=== PATIENT | female | born 1990 | race Caucasian/White ===

== ENCOUNTER 2016-06-30 22:30 | Outpatient (CLI) | payer MEDICAID ==
[2016-06-30 23:34] LABS: APPEARANCE HAZY (CLEAR); BILIRUBIN NEGATIVE (NEGATIVE); COLOR YELLOW (YELLOW); GLUCOSE NEGATIVE (NEGATIVE); KETONE NEGATIVE (NEGATIVE); LEUKOCYTE ESTERASE NEGATIVE (NEGATIVE); NITRITE NEGATIVE (NEGATIVE); PH 5.5 (5.0-6.0); PROTEIN NEGATIVE (NEGATIVE); SPECIFIC GRAVITY 1.025 (1.005-1.020); UROBILINOGEN NORMAL (NORMAL)
== END 2016-07-01 00:26 | disposition home or self-care (01) ==
LOC: D.LDO 22:30 → D.LD 22:30 → D.LDO 07-01 00:26
PROVIDERS: Obstetrics & Gynecology
DX: O26.853 Spotting complicating pregnancy, third trimester (principal); Z3A.28 28 weeks gestation of pregnancy

== ENCOUNTER → 2016-07-09 18:15 | Outpatient (CLI) | payer MEDICAID | END | disposition home or self-care (01) | LOC: D.LDO 18:15 | DX: O36.8130 Decreased fetal movements, third trimester, not applicable or unspecified (principal); Z3A.29 29 weeks gestation of pregnancy ==

== ENCOUNTER → 2016-07-14 15:44 | Outpatient (CLI) | payer MEDICAID | END | disposition home or self-care (01) | LOC: D.LABREF 15:44 | PROVIDERS: Specialist | DX: O60.00 Preterm labor without delivery, unspecified trimester (principal) ==

== ENCOUNTER → 2016-07-26 22:59 | Outpatient (CLI) | payer MEDICAID ==
[2016-07-26 23:40] LABS: APPEARANCE CLOUDY (CLEAR); BILIRUBIN NEGATIVE (NEGATIVE); COLOR YELLOW (YELLOW); GLUCOSE NEGATIVE (NEGATIVE); KETONE NEGATIVE (NEGATIVE); LEUKOCYTE ESTERASE TRACE (NEGATIVE); NITRITE NEGATIVE (NEGATIVE); PROTEIN NEGATIVE (NEGATIVE); UROBILINOGEN NORMAL (NORMAL)
[2016-07-26 23:47] LABS: AMORPHOUS SEDIMENT <1+ /lpf (NONE SEEN); BACTERIA MANY /hpf (NONE SEEN); EPITHELIAL CELLS 0-5 /hpf (0-5); GRANULAR CAST 0-5 /lpf (NONE SEEN); HYALINE CAST OCC /lpf (NONE SEEN); MUCUS <1+ /lpf (NONE SEEN); RED CELLS - URINE 0-5 /hpf (0-5)
== END | disposition home or self-care (01) ==
LOC: D.LDO 22:59
PROVIDERS: Obstetrics & Gynecology
DX: Z34.83 Encounter for supervision of other normal pregnancy, third trimester (principal); Z3A.31 31 weeks gestation of pregnancy; M54.9 Dorsalgia, unspecified; R10.9 Unspecified abdominal pain

== ENCOUNTER 2016-09-16 05:00 | Inpatient (IN) | payer MEDICAID ==
[~2016-09-16] VITALS: Ht 152.4 cm; Wt 57.6 kg
[2016-09-16] VITALS (19 sets, daily range): BP systolic 109–141; BP diastolic 55–80; BMI 24.8
--- NOTE | ~2016-09-16 | OP ---
PATIENT NAME: DAX DELA CRUZ MEDICAL RECORD: [id number] :92 LOCATION:[id number] ADMISSION DATE:09/16/16 SURGEON: DECLAN ZHOU MD DATE OF OPERATION: 09/16/2016 PREOPERATIVE DIAGNOSIS: Suspected cephalopelvic disproportion. POSTOPERATIVE DIAGNOSIS: Suspected cephalopelvic disproportion. PROCEDURE: A primary low transverse section with midline vertical extension of the uterine incision. SURGEON: Declan Zhou. ESTIMATED BLOOD LOSS: 1000 cc. INTRAVENOUS FLUIDS: Per anesthesia record. FINDINGS: 1. Viable female infant, Apgars 9 at 1 and 9 at 5. 2. Placenta delivered manually intact, 3-vessel cord noted. 3. Grossly normal adnexa bilaterally. 4. Android pelvis. SPECIMENS: Placenta and cord for gases. COMPLICATIONS: None apparent. PROCEDURE IN DETAIL: The patient was taken to the operating room where spinal anesthesia was achieved without difficulty. The patient was then prepped and draped in normal sterile fashion in the dorsal supine position. SCDs were on and running. A Duran catheter had been placed and was draining freely. At this point, the patient was prepped and draped and a Pfannenstiel skin incision was made, extended downward to the underlying subcutaneous fat to level of the fascia, which was then excised in the midline and then excised bilaterally using the Fuentes scissors. The superior and inferior aspects of the fascial incision were then grasped with Jessi clamps times 2, tented upward, and sharply dissected from the underlying rectus muscle using the Fuentes scissors and Bovie cautery. The rectus muscles were then bluntly in the midline. The midline raphae of the pyramidalis muscle was then excised using the Metzenbaum scissors. The peritoneum was entered bluntly at the superior aspect of the incision. Peritoneal incision was then stretched and excised bilaterally using the Metzenbaum scissors. A bladder flap was created by excising the anterior leaf of the broad ligament across the lower uterine segment. This was then gently dissected downward using a finger. A low transverse incision was made and the uterus was entered using a finger, and the uterine incision extended superiorly and inferiorly using the Pelosi method. The 's head was unengaged. It was initially grasped with the vacuum; however, the seal was inadequate and the vacuum immediately came off. The vacuum was then reapplied on the occiput. However, the uterine incision was found to be inadequate, so approximately 3 cm midline vertical extension and the uterine incision was created using the bandage scissors. The infant then had immediately assumed a flexed position and was delivered atraumatically. Vacuum application time was approximately 10 seconds. Correction of the head flexion without traction on the neck. No evidence of trauma. Vacuum was removed immediately OPERATIVE REPORT [id number] BOOK,DAX upon delivery of the vertex. Following atraumatic delivery of the baby, the infant was bulb suctioned. Cord was clamped times 2, cut, and the was handed to the awaiting nursery team. Cord was then obtained for gases. The placenta was delivered manually intact, 3-vessel cord was noted. Uterus was then exteriorized, cleared of all clots and debris using a lap sponge. The vertical portion of the incision was repaired using 0 Vicryl in a running locked fashion. Good hemostasis noted. The transverse incision was then repaired with 0 Vicryl in a running locked fashion times 2 with good hemostasis noted. Several areas of bleeding source were oversewn using 2-0 Vicryl. At this point, the posterior cul-de-sac was thoroughly irrigated. Counts were correct times 2. The anterior cul-de-sac was irrigated. Good hemostasis was noted from the uterine incision. Interceed and FloSeal were placed on the incision. The counts were correct times 2. The fascia was repaired with 0 loop PDS times 1 and the skin repaired with apoorva. The patient tolerated the procedure well, was transferred to postanesthesia recovery stable without incident. TRANSINT:[id number] Voice Confirmation ID: [id number] DOCUMENT ID: [id number] DECLAN ZHOU MD CC: [id number] DICTATION DATE: 09/16/16827 PUBLIC POLICY ASSOCIATE: 09/16/1658 ADM IN [facility] [address] [place] [address]
[2016-09-16] MEDS ORDERED: PRENATAL COMPLE1 TAB PO (05:36)
[2016-09-16] MEDS ORDERED: KEPPRA500 MG PO (05:37)
[2016-09-16] MEDS ORDERED: FOLIC ACID1 MG PO (05:38)
[2016-09-16 06:39] LABS: HEMATOCRIT 32.9 % (36.0-48.0); HEMOGLOBIN 10.4 g/dL (12-16); MCHC 31.6 g/dL (31.0-37.0); MCV 88.4 fL (80.0-100.0); MEAN PLATELET VOLUME 10.8 fL (7.4-10.4); RBC 3.72 10x6/uL (4.00-5.40); RDW 12.7 % (11.5-14.5); WBC 13.4 10x3/uL (4.8-10.8)
[2016-09-16 06:46] LABS: UDS - AMPHET NEGATIVE QUAL (NEGATIVE); UDS - BARB NEGATIVE QUAL (NEGATIVE); UDS - BENZO NEGATIVE QUAL (NEGATIVE); UDS - COCAINE NEGATIVE QUAL (NEGATIVE); UDS - METH NEGATIVE QUAL (NEGATIVE); UDS - OPIATE NEGATIVE QUAL (NEGATIVE); UDS - PCP NEGATIVE QUAL (NEGATIVE); UDS - THC NEGATIVE QUAL (NEGATIVE)
[2016-09-16 06:50] LABS: APPEARANCE HAZY (CLEAR); BILIRUBIN NEGATIVE (NEGATIVE); COLOR YELLOW (YELLOW); GLUCOSE NEGATIVE (NEGATIVE); KETONE NEGATIVE (NEGATIVE); LEUKOCYTE ESTERASE 2+ (NEGATIVE); NITRITE NEGATIVE (NEGATIVE); PROTEIN TRACE mg/dL (NEGATIVE); UROBILINOGEN NORMAL (NORMAL)
[2016-09-16 06:52] LABS: BACTERIA MANY /hpf (NONE SEEN); RED CELLS - URINE 0-5 /hpf (0-5); WHITE CELLS - URINE 0-5 /hpf (0-5)
--- NOTE | 2016-09-16 08:30 | NUR ---
fUNDUS AT BOTTOM OF UMBILLICUS SLIGHTLY TO THE RIGHT. MINIMAL LOCHIA PRESENT.
--- NOTE | 2016-09-16 08:42 | NUR ---
RECEIVED PT FROM VIA BED. BED LOCKED AND PLACED IN LOW POSITION. VSS. HRRR WITHOUT AUDIBLE MURMUR. BBS CLEAR. BS HYPOACTIVE X 4. ABDOMEN SOFT/NON-DISTENDED. ABDOMINAL DRESSING DRY. SMALL AREAS OF DRAINAGE NOTED. FUNDUS FIRM AT U/U. RUBRA LOCHIA SMALL AMT. PERIPAD CHANGED. ICE PACK TO INCISION. NEG HOMANS' SIGN. PPP. NO EDEMA NOTED TO BLE. SCDS ON BLE. ALEJANDRE TO GRAVITY DRAINING DARK, YELLOW URINE. PIV OF LR WITH 20 UNITS PITOCIN INFUSING AT 125 ML/HR TO RIGHT HAND. SITE CLEAR. PT INSTRUCTED ON INCENTIVE SPIROMETER. DEMONSTRATES UNDERSTANDING AND PULLS 1600. SPLINT PILLOW PROVIDED TO PT AND INSTRUCTED ON PURPOSE. PT PROVIDED ICE CHIPS AT REQUEST. ORIENTED TO ROOM, BED. AND CALL LIGHT. SR UPX 2. CALL LIGHT IN REACH.
--- NOTE | 2016-09-16 08:45 | NUR ---
DILAUDID COPER HAND STARTED ORDERED. PT INSTRUCTED ON MED. VERBALIZES UNDERSTANDING.
--- NOTE | 2016-09-16 09:59 | NUR ---
PT SITTING UP IN BED. VISITS WITH FAMILY. FUNDUS FIRM AT U/U. RUBRA LOCHIA SMALL TO MODERATE AMT. DRESSING DRY WITHOUT NEW DRAINAGE NOTED. PERIPAD CHANGED. PT REQUESTS AND RECEIVES ICE WATER.
--- NOTE | 2016-09-16 10:32 | NUR ---
PT C/O BREAKTHROUGH PAIN OF "4" ON 0-10 PAIN SCALE. TORADOL 30 MG GIVEN IVP OVER 2 MINUTES. PT INSTRUCTED ON MED. VERBALIZES UNDERSTANDING. PT STATES HAS TAKEN IBUPROFEN IN PAST WITH NO ALLERGIC REACTIONS NOTED.
--- NOTE | 2016-09-16 10:59 | NUR ---
PT SITTING UP IN BED. DROWSY. VISITS WITH FAMILY. DENIES NEEDS OR C/O.
--- NOTE | 2016-09-16 12:03 | NUR ---
PT SITTING UP IN BED. EATING CLEAR LIQUID LUNCH. DENIES NEEDS.
--- NOTE | 2016-09-16 13:10 | NUR ---
PT SITTING UP IN BED. CARING FOR INFANT. MUCH WARMTH SHOWN. VSS. FUNDUS FIRM AT U/U. RUBRA LOCHIA SMALL AMT. PERIPAD CHANGED. ABDOMINAL DRESSING DRY WITHOUT NEW DRAINAGE. FRESH ICE PACK TO INCISION. PT PROVIDED ICE AT REQUEST.
[2016-09-16 15:10] LABS: BASOPHILS 0.2 % (0-2); EOSINOPHILS 0.3 % (0-7); HEMATOCRIT 28.3 % (36.0-48.0); HEMOGLOBIN 9.3 g/dL (12-16); IMMATURE GRANULOCYTES 0.4 % (0-5); LYMPHOCYTES 12.2 % (15-50); MCH 28.9 pg (26.0-34.0); MCHC 32.9 g/dL (31.0-37.0); MCV 87.9 fL (80.0-100.0); MEAN PLATELET VOLUME 10.3 fL (7.4-10.4); NEUTROPHILS 77.9 % (40-80); PLATELET COUNT 225 10x3/uL (130-400); RBC 3.22 10x6/uL (4.00-5.40); RDW 12.7 % (11.5-14.5)
--- NOTE | 2016-09-16 15:24 | NUR ---
PT SITTING UP IN BED. VISITS WITH FAMILY. VSS. PT STATES PAIN "2" ON 0-10 PAIN SCALE. DENIES NEEDS OR C/O.
[2016-09-16 15:48] LABS: WBC 18.8 10x3/uL (4.8-10.8)
--- NOTE | 2016-09-16 16:00 | NUR ---
FUNDUS FIRM AT U/U. RUBRA LOCHIA SCANT AMT. ABDOMINAL DRESSING DRY WITHOUT DRAINAGE. FRESH ICE PACK TO INCISION. PT ENCOURAGED TO PUSH PO FLUIDS. FRESH ICE WATER PROVIDED TO PT.
--- NOTE | 2016-09-16 16:24 | NUR ---
DR COX ON UNIT. NEW ORDERS RECEIVED.
--- NOTE | 2016-09-16 18:00 | NUR ---
PT SITTING UP IN BED. CONSUMING CLEAR LIQUID DIET. I/O COMPLETED.
--- NOTE | 2016-09-16 18:24 | NUR ---
PT C/O PAIN TO PERINEUM (ALEJANDRE CATHETER) AND INCISION OF "4" ON 0-10 PAIN SCALE. TORADOL 30 MG GIVEN SIVP OVER 2 MINUTES. PT INSTRUCTED ON MED. VERBALIZES UNDERSTANDING.
--- NOTE | 2016-09-16 19:10 | NUR ---
REPORT GIVEN TO ON-COMING SHIFT.
--- NOTE | 2016-09-16 19:21 | NUR ---
RCVD PT FROM AM SHIFT FOR CONT. POST-OP CARE. PT SITTING UP IN BED WITH HOB 45 DEGREES FILLING OUT PAPERWORK FOR NSY AT THIS TIME. FAMILY AT BEDSIDE FOR SUPPORT. PT RATES CURRENT PAIN 2/10 AND TOLERABLE AT THIS TIME. VSS, HR-RRR, PPP, NO EDEMA NOTED TO BLE. PIV TO RT HAND PATENT, WITH NO EDEMA OR ERYTHEMA TO SITE. BOWEL SOUNDS HYPOACTIVE X4. FUNDUS FIRM, PT REPORTS SCANT LOCHIA RUBRA AT THIS TIME. LARGE DRESSING NOTED TO LOWER ABD OVER INCISION WITH SCANT SEROSANGUINOUS DRAINAGE UNDER DRESSING WHICH HAS NOT SATURATED THROUGH THE DRESSING. EDU PT ON 12 HR ORDERS TO D/C ALEJANDRE AND IV PAIN MEDICATIONS. PT IS AGREEABLE AND VERBALIZES UNDERSTANDING. PT DENIES FURTHER NEEDS AT THIS TIME. BED LOW, WHEELS LOCKED, CL IN REACH, SIDE RAILS UP X2.
--- NOTE | 2016-09-16 19:38 | NUR ---
RN TO BEDSIDE. X RAY TECHNICIAN PUMP COMPLETE AT THIS TIME. PER 12 HR ORDERS, X RAY TECHNICIAN D/C'D AND IV SALINE LOCKED AT THIS TIME. ALEJANDRE CATH REMOVED PER Gilmer BAIRES RN WITH CATH TIP INTACT. PT KIMBERLYN. WELL. TEACHING PROVIDED TO PT ON GETTING UP WITH ASSISTANCE THE FIRST TIME WHEN SHE FEELS THE URGE TO VOID. PT VERBALIZED UNDERSTANDING. PT EDU ON ORAL PAIN MEDICATIONS. PT IS AGREEABLE AND VERBALIZED UNDERSTANDING. PT DENIES FURTHER NEEDS AT THIS TIME. WILL CONT. TO MONITOR.
--- NOTE | 2016-09-16 20:32 | NUR ---
PT REPORTS URGE TO VOID. PT UP OUT OF BED WITH ASSISTANCE FROM THIS RN. NO DIZZINESS OR LIGHTHEADEDNESS REPORTED FROM PT. PT AMB TO BATHROOM WITH SLOW BUT STEADY GAIT. PT VOIDS 200ML CLEAR YELLOW URINE IN [place] HAT. CLEAN GOWN, PANTIES AND PADS PROVIDED AT THIS TIME. PT BACK TO BED TO AWAIT TRANSPORT TO ROOM 1257.
--- NOTE | 2016-09-16 20:41 | NUR ---
PT TRANSPORTED VIA W/C TO ROOM 1257 PER THIS RN. TRANSPORTED TO ROOM VIA OPEN CRIB PER Gilmer BAIRES RN. PT AND FAMILY ORIENTED TO ROOM. PT TO BED, DENIES FURTHER NEEDS AT THIS TIME. WILL CONT TO MONITOR. BED LOW, WHEELS LOCKED, CL IN REACH, SIDE RAILS UP X2.
--- NOTE | 2016-09-16 21:23 | NUR ---
PT REQUESTS AND RECEIVES NORCO 5/235 FOR PAIN RATED 5/10 IN ABD AT THIS TIME. PT DENIES FURTHER NEEDS AT THIS TIME. WILL CONT. TO MONITOR.
--- NOTE | 2016-09-16 22:08 | NUR ---
PAIN REASSESSMENT COMPLETE. PT REPORTS PAIN 08/10 AND STATES "THE MEDICINE JUST TOOK THE EDGE OFF." PT REQUESTS THAT MOTRIN BE BROUGHT AFTER SHE'S FINISHED FEEDING . PT WILL CALL OUT ON CL. FAMILY REMAINS AT BEDSIDE. PT DENIES FURTHER NEEDS AT THIS TIME.
--- NOTE | 2016-09-16 22:31 | NUR ---
PT RINGS CL. THIS RN TO BEDSIDE. PT REQUESTS & RECEIVES MOTRIN 600MG X1 TAB FOR PAIN RATED 2/10 IN ABD AT THIS TIME. PT WITH INFANT UP IN ARMS, HOB 45 DEGREES AND VISITING WITH FAMILY IN ROOM. PT ALSO REQUESTS AND RECEIVES FRESH ICE WATER. PT'S QUESTIONS ANSWERED REGARDING REG. DIET. THIS RN ADVISED PT TO START SLOW WITH MAYBE SOME CRACKERS AND TO REPORT WHEN PASSING GAS. PT VERBALIZED UNDERSTANDING. DENIES FURTHER NEEDS AT THIS TIME. WILL CONT. TO MONITOR.
--- NOTE | 2016-09-16 23:18 | NUR ---
ROUNDS MADE. VSS. PAIN RATED 1/10 AT THIS TIME AND TOLERABLE. PT WITH UP IN ARMS BONDING AT THIS TIME. FAMILY REMAINS IN ROOM. PT DENIES FURTHER NEEDS. WILL CONT. POC.
--- NOTE | 2016-09-17 01:38 | NUR ---
PT RINGS CL. REQUESTS NORCO 5/325 MG X1 TAB STATING "I JUST WANT THE SAME THING I HAD EARLIER BECAUSE IT TOOK CARE OF MY PAIN AND DIDN'T MAKE ME FALL ASLEEP." PT RATES CURRENT PAIN LEVEL 2/10 AT THIS TIME. PT REPORTS GETTING UP TO VOID SEVERAL TIMES ON HER OWN AND STATES "I TAKE A LONG PEE. IT'S NOT LIKE IT'S A LITTLE BIT." PT ALSO REPORTS SMALL AMOUNT OF LOCHIA RUBRA WHEN VOIDING. PT DENIES FURTHER NEEDS AT THIS TIME. FOB AND VISITORS REMAIN AT BEDSIDE AT THIS TIME. WILL CONT. TO MONITOR.
--- NOTE | 2016-09-17 02:13 | NUR ---
Gilmer BAIRES RN REPORTS THAT SHE TRANSPORTED INFANT TO THE N DUE TO PT REQUEST. PT REPORTS TO Gilmer BAIRES RN THAT SHE PLANS TO SLEEP THE REST OF THE NIGHT. PAIN IS TOLERABLE AT THIS TIME.
--- NOTE | 2016-09-17 05:06 | NUR ---
MOTRIN 600MG X1 TAB GIVEN FOR PAIN RATED 2/10. PT DENIES FURTHER NEEDS AT THIS TIME.
[2016-09-17 05:25] LABS: BASOPHILS 0.2 % (0-2); EOSINOPHILS 0.3 % (0-7); IMMATURE GRANULOCYTES 0.5 % (0-5); LYMPHOCYTES 11.4 % (15-50); MCH 29.2 pg (26.0-34.0); MCHC 33.3 g/dL (31.0-37.0); MCV 87.7 fL (80.0-100.0); MEAN PLATELET VOLUME 10.3 fL (7.4-10.4); MONOCYTES 7.3 % (2-11); NEUTROPHILS 80.3 % (40-80); PLATELET COUNT 229 10x3/uL (130-400); RBC 3.08 10x6/uL (4.00-5.40); RDW 13.1 % (11.5-14.5); WBC 17.5 10x3/uL (4.8-10.8)
--- NOTE | 2016-09-17 05:56 | NUR ---
PT RATES PAIN 4/10 CURRENTLY AND REQUESTS NORCO 5 AT THIS TIME. WILL RETURN WITH MEDICATION. PT NOTED TO BE RESTING WITH EYES CLOSED AND UP IN ARMS UPON ENTERING ROOM. PT WAKENED PER THIS RN AND INFANT PLACED IN OPEN CRIB. ADV PT THAT MUST BE IN OPEN CRIB IF SHE IS FALLING ASLEEP, AND THAT SOMEONE IN THE ROOM NEEDS TO BE AWAKE WHILE IS IN ROOM. PT VERBALIZED UNDERSTANDING.
--- NOTE | 2016-09-17 06:06 | NUR ---
NORCO 5/235 GIVEN FOR PAIN RATED 4/10. FOB HOLDING AT THIS TIME. GIFT BOX AND FRESH ICE WATER PROVIDED WELL. PT DENIES FURTHER NEEDS AT THIS TIME. WILL CONT. POC.
[2016-09-17 06:15] LABS: RAPID PLASMA REAGIN Non Reactive (Non Reactive)
[2016-09-17 07:30] VITALS: BP 117/69
--- NOTE | 2016-09-17 07:30 | NUR ---
TO PT'S ROOM, PT IS CURRENTLY SITTING UP IN THE BED, SIG OTHER AT BEDSIDE HOLDING INFANT. PT DENIES HEAVY BLEEDING OR PASSING CLOTS. PT STATES SHE RECEIVED PAIN MEDICATION "NOT TOO LONG AGO, AND I REALLY DON'T NEED ANYTHING RIGHT NOW". BREAKFAST TRAY IS ON BEDSIDE TABLE. PT REQUESTS SPRITE TO DRINK, SERVED. DENIES OTHER NEEDS. SR UP X 2, CALL LIGHT AND PHONE WITHIN REACH.
--- NOTE | 2016-09-17 10:30 | NUR ---
PT CALLS OUT CATTLE SPRAYER LIGHT REQUESTING PAIN MEDICATION, STATING "I WOULD LIKE TO TAKE BOTH PAIN PILLS". MEDICATION ADM RECORD REVIEWED WITH PT. IBUPROFEN 600 MG ONE PO, AND NORCO 10 MG ONE PO GIVEN WITH LARGE ICE WATER. PT ENCOURAGED TO AMBULATE IN HALLWAYS TWICE TODAY, AGREES. PT DENIES OTHER NEEDS AT THIS TIME.
[2016-09-17 14:11] VITALS: Ht 152.4 cm; Wt 57.6 kg
--- NOTE | 2016-09-17 14:25 | NUR ---
PT CALLS OUT CAREERS COUNSELLOR LIGHT REQUESTING PAIN MEDICATION. STATES SHE WOULD LIKE TO TAKE A NORCO. TO ROOM WITH NORCO 10 MG, PT QUESTIONS IF THIS IS A 5 MG TABLET, STATING THE 10 MG IS TOO STRONG FOR HER, STATES "I CAN'T FUNCTION ON THE 10 MG".
--- NOTE | 2016-09-17 14:30 | NUR ---
PHONE CALL MADE TO DR. COX, NEW ORDER RECEIVED FOR PT, MAY TAKE NORCO 5 MG ONE BY MOUTH EVERY 4 HOURS FOR C/O PAIN.
--- NOTE | 2016-09-17 18:59 | NUR ---
REPORT GIVEN TO 7 P SHIFT.
[2016-09-17 19:20] VITALS: BP 119/69
--- NOTE | 2016-09-17 19:20 | NUR ---
PT. AWAKE AND ORIENTED. COMMENTING THAT DUE TO LARGE AMT. OF TOTEMS (formerly Nitrogram) YESTERDAY SHE AND FOB ARE EXTREMELY TIRED. ASKING IF INFANT COULD BE RETURNED TO [facility] AND STAY UNTIL THEY CALLED FOR HER. INFORMED THIS NURSE WOULD DO THAT. BREATH SOUNDS CLEAR AND BOWEL SOUNDS AUDIBLE. ABD. INCISION WITH STERI STRIPS NOTED WITHOUT DRAINAGE OR REDNESS. LOCHIA RUBRA SCANT. ABD. SLIGHTLY DISTENDED ALTHOUGH SOFT. PT. RELATES THAT SHE IS PASSING GAS AND HAS WALKED TODAY. ENCOURAGED AMBULATION AGAIN AT SOME TIME TONIGHT. STATES UNDERSTANDING. DENIES ANY PAIN IN LOWER EXTREMITIES AND NO REDNESS NOTED. RATES PAIN A 2 OF 10 ON PAIN SCALE BUT REQUESTED PAIN MED IF IT "WAS DUE" PRIOR TO HER GOING TO SLEEP. RETURNED TO N PER HER REQUEST AND NBN INFORMED OF PT'S PLAN TO SLEEP AND CALL FOR INFANT WHEN THEY AWAKEN.
--- NOTE | 2016-09-17 19:35 | NUR ---
PT. AMBULATORY TO BATHROOM. GAIT SLOW BUT STEADY. SITTING ON SIDE OF BED. PAIN MED GIVEN ORDERED. ASSISTED BACK INTO BED. STATES SHE PLANS TO SLEEP. RATES PAIN A 2 OF 10 ON PAIN SCALE.
--- NOTE | 2016-09-17 20:24 | NUR ---
LYING ON RT SIDE WITH RESPIRATIONS REGULAR. LIGHTS IN ROOM DIMMED. FOB LYING ON SOFA.
--- NOTE | 2016-09-17 21:18 | NUR ---
ROUNDS MADE. PT LYING IN BED, HOB 45 DEGREES. FOB AND FAMILY AT BEDSIDE. PT REQUESTS & RECEIVES FRESH ICE WATER. QUESTIONS ANSWERED ON ICE VS WARMTH OVER INCISION SECOND DAY POST OP. PT VERBALIZED UNDERSTANDING. RATES PAIN 4/10 CURRENTLY BUT TOLERABLE. PT DENIES FURTHER NEEDS AT THIS TIME.
--- NOTE | 2016-09-17 22:40 | NUR ---
PT. SITTING UP IN BED LOOKING ON PHONE. VISITOR AT BEDSIDE TALKING WITH FOB. LIGHTS ON IN ROOM. PT. REQUESTING TO ROOM AFTER FEEDING. NBN INFORMED. PAIN AT THIS TIME 06/12. DECLINES SCDS AT THIS TIME.
--- NOTE | 2016-09-18 00:01 | NUR ---
VISITOR REMAINS IN ROOM AND FOB AND PT. TALKING WITH HIM. PT. DENIES ANY NEEDS.
--- NOTE | 2016-09-18 01:02 | NUR ---
VISITOR AT BEDSIDE. PT. SITTING UP IN BED. IN OPEN CRIB AT BEDSIDE. PT. DENIES ANY NEEDS. FOB STATES THAT AFTER THIS FEEDING THEY WOULD LIKE INFANT TO RETURN TO NBN SO THEY COULD SLEEP. PT. AGREES. DENIES ANY NEEDS.
--- NOTE | 2016-09-18 02:40 | NUR ---
FOB CHANGING INFANT'S DIAPER AND RECORDING FEEDING. PT. LYING IN BED ON BACK. VISITORS CURRENTLY OUT OF ROOM. REQUESTING BE RETURNED TO N SO THEY CAN SLEEP. PT. STATES SHE IS SLEEPY AND READY TO REST. FOB TURNING LIGHTS LOW. DENIES ANY NEEDS AT THIS TIME.
[2016-09-18 03:00] VITALS: BP 128/81
--- NOTE | 2016-09-18 03:00 | NUR ---
PT. DROWSY. VITAL SIGNS OBTAINED. PT. ASKED IF SHE COULD HAVE PAIN MED BEFORE SHE GOT TO SLEEP. INFORMED WOULD RETURN WITH MEDS DAPHNEY.
--- NOTE | 2016-09-18 03:04 | NUR ---
NORCO 5/325MG X1 TAB AND MOTRIN 600MG X1 TAB GIVEN PER PT REQUEST FOR PAIN RATED 4/10 AT THIS TIME. FRESH ICE WATER PROVIDED. TRASH CLEARED FROM BEDSIDE TABLE. FOB ASLEEP ON BEDSIDE COUCH. PT DENIES FURTHER NEEDS AT THIS TIME.
--- NOTE | 2016-09-18 03:46 | NUR ---
PAIN REASSESSMENT COMPLETE. PT RESTING, EYES CLOSED, RESP EVEN & UNLABORED. PT LEFT UNDISTURBED AT THIS TIME.
--- NOTE | 2016-09-18 04:30 | NUR ---
LYING ON LT SIDE. RESPIRATIONS REGULAR. LIGHTS IN ROOM DIMMED.
[2016-09-18 08:40] VITALS: BP 127/78
--- NOTE | 2016-09-18 08:40 | NUR ---
RECEIVED IN BED. AWAKE. ABD SOFT. FUNDUS FIRM MIDLINE. LOCHIA LIGHT. STAPELED AREA CLEAN/DRY. BONDING WELL WITH BABY. MOVES ALL EXTREM. STATES PAIN IS 0/10. PLANS ON WALKING AFTER THIS ASSESS. BS+ X4QUAD. LUNGS CLEAR BLILAT. TO BASE.
--- NOTE | 2016-09-18 09:55 | NUR ---
AMBULATING IN [place]. NO COMPLAINTS VOICED
--- NOTE | 2016-09-18 11:57 | NUR ---
D/C INSTRUCTIONS GIVEN AND EXPLAINED TO PT. FOLLOW-UP APPT MADE FOR 09/22/16 AT 8:[address] COX. RX X2 GIVEN TO PT.
== END 2016-09-18 11:57 | disposition home or self-care (01) | DRG 765 ==
LOC: D.LD 05:00 → D.SDCHOLD 07:30 → D.LD 20:42
PROVIDERS: ADMIT Obstetrics & Gynecology
PROC: 10D00Z1 Extraction of Products of Conception, Low, Open Approach (ICD-10-PCS; principal; 2016-09-16 07:30)
DX: O33.9 Maternal care for disproportion, unspecified (principal); O99.324 Drug use complicating childbirth; O69.81X0 Labor and delivery complicated by cord around neck, without compression, not applicable or unspecified; O36.5930 Maternal care for other known or suspected poor fetal growth, third trimester, not applicable or unspecified; Z3A.39 39 weeks gestation of pregnancy; Z37.0 Single live birth; O99.344 Other mental disorders complicating childbirth; F32.9 Major depressive disorder, single episode, unspecified; F12.90 Cannabis use, unspecified, uncomplicated

== ENCOUNTER 2020-01-06 11:32 | Emergency (ER) | payer MEDICAID ==
[~2020-01-06] VITALS: Ht 152.4 cm; Wt 58.6 kg
[~2020-01-06 11:32] MED LIST: FOLIC ACID1 MG PO; KEPPRA500 MG PO; PRENATAL COMPLE1 TAB PO
[2020-01-06 11:36] VITALS: Ht 152.4 cm; Wt 58.6 kg
[2020-01-06 12:05] LABS: BILIRUBIN NEGATIVE (NEGATIVE); KETONE NEGATIVE (NEGATIVE); NITRITE NEGATIVE (NEGATIVE); UROBILINOGEN NORMAL (NORMAL)
[2020-01-06 12:07] LABS: RED CELLS - URINE 0-5 /hpf (0-5); WHITE CELLS - URINE 0-5 /hpf (0-5)
[2020-01-06 12:08] LABS: AMORPHOUS SEDIMENT >1+ /lpf (NONE SEEN); BACTERIA FEW /hpf (NONE SEEN); EPITHELIAL CELLS 0-5 /hpf (0-5)
[2020-01-06 12:21] LABS: BASOPHILS 0.2 % (0-2); EOSINOPHILS 0.6 % (0-7); HEMATOCRIT 37.8 % (36.0-48.0); HEMOGLOBIN 12.7 g/dL (12-16); IMMATURE GRANULOCYTES 0.3 % (0-5); LYMPHOCYTES 16.3 % (15-50); MCH 31.4 pg (26.0-34.0); MCHC 33.6 g/dL (31.0-37.0); MCV 93.6 fL (80.0-100.0); MEAN PLATELET VOLUME 9.4 fL (7.4-10.4); MONOCYTES 7.6 % (2-11); RBC 4.04 10x6/uL (4.00-5.40); RDW 12.2 % (11.5-14.5); WBC 12.6 10x3/uL (4.8-10.8)
[2020-01-06 12:27] LABS: PLATELET COUNT 297 10x3/uL (130-400)
[2020-01-06 12:43] LABS: CALC OSMOLALITY 272 mosm/kg (275-300); CARBON DIOXIDE 25.4 mmol/L (21.0-32.0); CHLORIDE - SERUM 103 mmol/L (98-107); CREATININE - SERUM 0.5 mg/dL (0.6-1.3); GLUCOSE 72 mg/dL (74-106); POTASSIUM - SERUM 3.6 mmol/L (3.5-5.1); SODIUM 138 mmol/L (136-145); UREA NITROGEN 7 mg/dL (7-18); eGFR NON AFRICAN AMERICAN > 90 mL/min (90-120)
[2020-01-06 13:20] LABS: ALBUMIN 3.6 g/dL (3.4-5.0); ALKALINE PHOSPHATASE 54 U/L (30-120); ALT (SGPT) 19 U/L (10-68); BILIRUBIN - TOTAL 0.29 mg/dL (0.2-1.3); HCG - QUANTITATIVE (MATERNAL) 124022 mIU/mL; PROTEIN - SERUM 7.1 g/dL (6.4-8.2)
[2020-01-06] MEDS ORDERED: FOLIC ACID1 MG PO (14:10)
[2020-01-06 14:34] VITALS: BP 114/45
== END 2020-01-06 14:33 | disposition home or self-care (01) ==
LOC: D.ER 11:32
PROVIDERS: Family Medicine
DX: O22.41 Hemorrhoids in pregnancy, first trimester (principal); K59.00 Constipation, unspecified; Z3A.09 9 weeks gestation of pregnancy; K92.1 Melena

== ENCOUNTER 2020-02-19 19:20 | Emergency (ER) | payer MEDICAID ==
[~2020-02-19] VITALS: Ht 152.4 cm; Wt 57.7 kg
[2020-02-19 19:41] VITALS: Ht 152.4 cm; Wt 57.7 kg
[2020-02-19 20:47] LABS: BILIRUBIN NEGATIVE (NEGATIVE); KETONE NEGATIVE (NEGATIVE); NITRITE NEGATIVE (NEGATIVE); UROBILINOGEN NORMAL mg/dL (< 2)
[2020-02-19 20:49] LABS: WHITE CELLS - URINE OCC HPF (0-4)
[2020-02-19 21:39] LABS: BASOPHILS 0.1 % (0-2); EOSINOPHILS 0.6 % (0-7); HEMATOCRIT 37.6 % (36.0-48.0); HEMOGLOBIN 12.7 g/dL (12-16); IMMATURE GRANULOCYTES 0.3 % (0-5); MCHC 33.8 g/dL (31.0-37.0); MCV 91.7 fL (80.0-100.0); MEAN PLATELET VOLUME 9.2 fL (7.4-10.4); MONOCYTES 6.6 % (2-11); NEUTROPHILS 66.4 % (40-80); PLATELET COUNT 290 10x3/uL (130-400); RDW 11.9 % (11.5-14.5); WBC 14.3 10x3/uL (4.8-10.8)
[2020-02-19 21:46] LABS: CALC OSMOLALITY 269 mosm/kg (275-300); CALCIUM 9.3 mg/dL (8.5-10.1); CARBON DIOXIDE 26.1 mmol/L (21.0-32.0); CHLORIDE - SERUM 102 mmol/L (98-107); CREATININE - SERUM 0.4 mg/dL (0.6-1.3); GLUCOSE 95 mg/dL (74-106); POTASSIUM - SERUM 3.4 mmol/L (3.5-5.1); SODIUM 136 mmol/L (136-145); UREA NITROGEN 7 mg/dL (7-18); eGFR NON AFRICAN AMERICAN > 90 mL/min (90-120)
[2020-02-19 21:52] LABS: ALBUMIN 3.3 g/dL (3.4-5.0); ALKALINE PHOSPHATASE 59 U/L (30-120); ALT (SGPT) 14 U/L (10-68); BILIRUBIN - TOTAL 0.15 mg/dL (0.2-1.3); PROTEIN - SERUM 7.3 g/dL (6.4-8.2)
[2020-02-19 22:44] VITALS: BP 129/65
== END 2020-02-19 22:44 | disposition home or self-care (01) ==
LOC: D.ER 19:20
PROVIDERS: Family Medicine
DX: E87.6 Hypokalemia (principal); F41.9 Anxiety disorder, unspecified; R53.1 Weakness

== ENCOUNTER 2020-06-27 11:00 | Outpatient (CLI) | payer MEDICAID ==
[2020-02-19 19:41] VITALS: BMI 24.8
--- NOTE | 2020-06-27 12:06 | NUR ---
NURSE COMPLETED SI ASSESSMENT FOR LIFETIME SI. PT STATED IT WAS A LIFETIME THOUGHT. PT STATED SHE WAS A DEPRESSIVE TEENAGER AND ADULT WELL. CURRENTLY ON MEDICATIONS AND DOING VERY WELL. PT IS A MODERATE RISK PER DR. LEHMAN. NO FURTHER ORDERS AT THIS TIME. RESOUCES REVIEWED WITH PT AND SHE VERBALIZIED UNDERSTANDING.
== END 2020-06-27 12:09 | disposition home or self-care (01) ==
LOC: D.LDO 11:00
PROVIDERS: ATTEND Obstetrics & Gynecology
DX: O35.9XX0 Maternal care for (suspected) fetal abnormality and damage, unspecified, not applicable or unspecified (principal)

== ENCOUNTER 2020-07-04 14:35 | Outpatient (CLI) | payer MEDICAID ==
[2020-02-19 19:41] VITALS: BMI 24.8
== END 2020-07-04 15:12 | disposition home or self-care (01) ==
LOC: D.LDO 14:35
PROVIDERS: ATTEND Obstetrics & Gynecology
DX: O26.899 Other specified pregnancy related conditions, unspecified trimester (principal)

== ENCOUNTER 2020-07-10 12:50 | Inpatient (IN) | payer MEDICAID ==
[~2020-07-10] VITALS: Ht 152.4 cm; Wt 65.3 kg
[2020-07-29] VITALS (10 sets, daily range): BP systolic 104–145; BP diastolic 57–81; BMI 28.1
[2020-07-29 10:43] LABS: HEMATOCRIT 36.1 % (36.0-48.0); HEMOGLOBIN 11.7 g/dL (12-16); MCH 29.8 pg (26.0-34.0); MCHC 32.4 g/dL (31.0-37.0); MCV 92.1 fL (80.0-100.0); MEAN PLATELET VOLUME 10.2 fL (7.4-10.4); RBC 3.92 10x6/uL (4.00-5.40); RDW 13.3 % (11.5-14.5); WBC 7.2 10x3/uL (4.8-10.8)
--- NOTE | 2020-07-29 14:02 | NUR ---
RECEIVED PT FROM RR NURSE IN PT ROOM-1273. BED LOCKED AND PLACED IN LOW POSITION. PT AWAKE. AAO X 3. VS. HRRR WITHOUT AUDIBLE MURMUR. BBS CLEAR. BS X 4. ABDOMEN SOFT/NON-DISTENDED. FUNDUS FIRM AT U/U. RUBRA LOCHIA SCANT AMT. NO CLOTS EXPRESSED. PERICARE DONE. PT STATES BOTH LEGS CONTINUE NUMB. SCDS ON BLE. PUMP ON. ALEJANDRE TO GRAVITY DRAINING CLOUDY, YELLOW URINE. PIV SITE CLEAR TO RIGHT WRIST. NS WITH PITOCIN INFUSING AT 125 ML/HR. PT STATES PAIN OF "3" ON 0-10 PAIN SCALE. PT INSTRUCTED ON INCENTIVE SPIROMETER. PULLS 1600 WELL. ABDOMINAL DRESSING DRY WITHOUT DRAINAGE. ICE PACK TO INCISION. PT DENIES NEEDS OR C/O. SR UP X 2. CALL LIGHT IN REACH. ICE CHIPS PROVIDED TO PT PER RR NURSE.
--- NOTE | 2020-07-29 14:28 | NUR ---
DILAUDID RADIOLOGY NURSE STARTED ORDERED. PT INSTRUCTED ON MED AND USE OF BUTTON. PT INSTRUCTED ON MED. VERBALIZES UNDERSTANDING.
--- NOTE | 2020-07-29 15:00 | NUR ---
PT PULLS INCENTIVE SPIROMETER OF 1800. PT KIMBERLYN WELL.
--- NOTE | 2020-07-29 15:30 | NUR ---
PT SITTING UP IN BED. AWAKE. SLOWLY CONSUMING CLEAR LIQUIDS. DENIES NEEDS. STATES PAIN MEDICATION HELPING TO RELIEVE PAIN.
--- NOTE | 2020-07-29 17:04 | NUR ---
PT C/O BREAKTHROUGH PAIN OF "6" ON 0-10 PAIN SCALE. DILAUDID 0.4 MG BOLUS GIVEN VIA HANDHOLE MACHINE OPERATOR AT THIS TIME. PT INSTRUCTED ON MED. VERBALIZES UNDERSTANDING.
--- NOTE | 2020-07-29 18:00 | NUR ---
I/O COMPLETED. FUNDUS FIRM AT U/U. ALVARA LOCHIA SCANT AMT. PERIPAD AND CHUX CHANGED. PERICARE DONE. PT MOVES WELL IN BED.
--- NOTE | 2020-07-29 18:10 | NUR ---
PT C/O NAUSEA. NO EMESIS NOTED. ZOFRAN 4 MG GIVEN SIVP OVER 2 MINUTES. PT INSTRUCTED ON MED. VERBALIZES UNDERSTANDING.
--- NOTE | 2020-07-29 18:40 | NUR ---
LAB STAFF TO ROOM TO OBTAIN ORDERED LABWORK.
--- NOTE | 2020-07-29 18:45 | NUR ---
DILAUDID RESEARCH NUTRITIONIST VIAL CHANGED OUT. PT STATES PAIN NOW "4" ON 0-10 PAIN SCALE. DENIES NEED FOR FURTHER PAIN MED.
[2020-07-29 18:52] LABS: BASOPHILS 0.2 % (0-2); EOSINOPHILS 0.4 % (0-7); HEMATOCRIT 34.1 % (36.0-48.0); HEMOGLOBIN 11.3 g/dL (12-16); IMMATURE GRANULOCYTES 0.3 % (0-5); LYMPHOCYTE ABS# 1.95 10x3/uL (1.18-3.74); MCH 30.6 pg (26.0-34.0); MCHC 33.1 g/dL (31.0-37.0); MCV 92.4 fL (80.0-100.0); MEAN PLATELET VOLUME 10.2 fL (7.4-10.4); MONOCYTES 10.1 % (2-11); NEUTROPHIL ABS# 8.91 10x3/uL (1.56-6.13); PLATELET COUNT 149 10x3/uL (130-400); RBC 3.69 10x6/uL (4.00-5.40); RDW 13.3 % (11.5-14.5)
[2020-07-29 18:57] LABS: WBC 12.2 10x3/uL (4.8-10.8)
--- NOTE | 2020-07-29 19:20 | NUR ---
BEDSIDE SHIFT REPORT COMPLETED AT THIS TIME TO ASSUME PATIENT CARE.
--- NOTE | 2020-07-29 20:55 | NUR ---
SHIFT ASSESSMENT COMPLETED, SEE FLOWSHEET.
--- NOTE | 2020-07-29 21:04 | NUR ---
TORADOL 30MG SLOW IVP ADMINISTERED AT THIS TIME PER MD ORDERS AND PATIENT REQUEST.
--- NOTE | 2020-07-29 22:02 | NUR ---
MORELIA PROVIDED PER PT REQUEST, NO FURTHER NEEDS IDENTIFIED. WILL CONTINUE TO MONITOR.
--- NOTE | 2020-07-29 23:31 | NUR ---
PATIENT GIVEN A FULL CUP OF ICE WATER AND ENCOURAGED TO DRINK, FRESH ICE PACK PLACED ON ABDOMEN PER PT REQUEST. INFANT IN FATHERS ARMS, HE IS ATTEMPTING TO FEED . NO NEEDS IDENTIFIED, WILL CONTINUE TO MONITOR.
--- NOTE | 2020-07-30 02:15 | NUR ---
NEW BAG OF IV FLUIDS HUNG AT THIS TIME PER MD ORDERS, SEE EMAR
--- NOTE | 2020-07-30 03:03 | NUR ---
TORADOL 30MG SLOW IVP ADMINISTERED PER MD ORDERS AND PT REQUEST. SEE EMAR.
--- NOTE | 2020-07-30 04:30 | NUR ---
PATIENT RESTING QUIETLY WITH EYES CLOSED, RESPIRATIONS EVEN AND NON LABORED. WILL CONTINUE TO MONITOR
--- NOTE | 2020-07-30 07:00 | NUR ---
TO ROOM, FOR BESIDE SHIFT REPORT WITH Gilmer NUNEZ RN. PT HOLDING INFANT AT THIS TIME. WILL RETURN TO ROOM FOR AM ASSESSMENT. SRPUP X2, CALL LIGHT AND PHONE WITHIN REACH.
[2020-07-30 07:05] LABS: BASOPHILS 0.2 % (0-2); EOSINOPHILS 0.4 % (0-7); HEMATOCRIT 31.6 % (36.0-48.0); HEMOGLOBIN 10.2 g/dL (12-16); IMMATURE GRANULOCYTES 0.4 % (0-5); LYMPHOCYTE ABS# 1.87 10x3/uL (1.18-3.74); LYMPHOCYTES 15.3 % (15-50); MCH 29.7 pg (26.0-34.0); MCHC 32.3 g/dL (31.0-37.0); MCV 91.9 fL (80.0-100.0); MEAN PLATELET VOLUME 10.6 fL (7.4-10.4); MONOCYTES 7.4 % (2-11); NEUTROPHILS 76.3 % (40-80); PLATELET COUNT 159 10x3/uL (130-400); RBC 3.44 10x6/uL (4.00-5.40); RDW 13.3 % (11.5-14.5); WBC 12.2 10x3/uL (4.8-10.8)
[2020-07-30 07:16] LABS: RAPID PLASMA REAGIN Non Reactive (Non Reactive)
[2020-07-30 07:30] VITALS: BP 112/68
--- NOTE | 2020-07-30 07:30 | NUR ---
AM ASSESSMENT COMPLETED, SEE FLOWSHEET. SRUP X2, CALL LIGHT AND PHONE WITHIN REACH.
--- NOTE | 2020-07-30 08:00 | NUR ---
DR. COX ON UNIT, TO ROOM TO SPEAK WITH PT, ORDERS RECEIVED TO BARBRA GILLESPIE IV, ADVANCE TO REGULAR DIET, AND CHANGE MED TO PO.
--- NOTE | 2020-07-30 08:15 | NUR ---
TO ROOM, PERICARE DONE WITH WARM WET WASHCLOTHS, FUNUS FIRM, U/1, SMALL RUBRA LOCHIA, NO CLOTS. ALEJANDRE CATH DC'D WITH TOTAL OF 400 MLS YELLOW URINE OUT. CHUX/PERIPADS CHANGED. PT WISHES TO FINISH BREAKFAST, REGULAR DIET ON BEDSIDE TABLE. SEE EMAR FOR ALL MEDS ADM BY THIS RN. PT SERVED LARGE GLASS OF ICE WATER. NEW ICE PACK PLACED OVER GOWN TO INCISION. SRUP X2, CALL LIGHT AND PHONE WITHIN REACH. PT DENIES ALL NEEDS AT THIS TIME.
[2020-07-30 08:54] VITALS: Ht 152.4 cm; Wt 65.3 kg
--- NOTE | 2020-07-30 09:45 | NUR ---
ASSISTED PT UP TO BR, GAIT SLOW AND STEADY. PT REQUESTS TO GET UP TO VOID. WARM WET WASHCLOTHS PROVIDED FOR PERICARE.
[2020-07-30 11:00] VITALS: BP 114/70
--- NOTE | 2020-07-30 11:45 | NUR ---
DIETARY SERVES REGULAR LUNCH TRAY. PT SERVED MARLENY LEMON KING SALMON TO DRINK. DENIES ALL NEEDS AT THIS TIME. SRUP X2, CALL LIGHT AND PHONE WITHIN REACH.
[2020-07-30 16:00] VITALS: BP 120/74
--- NOTE | 2020-07-30 16:00 | NUR ---
PT AMBULATORY IN HALLWAYS, SIG OTHER AT SIDE. PT SMILING AND DENIES NEEDS AT THIS TIME. SRUP X 2, CALL LIGHT AND PHONE WITHIN REACH.
--- NOTE | 2020-07-30 17:00 | NUR ---
PT AMBULATORY IN HALLWAYS, PT DENIES ALL NEEDS, SMILING.
--- NOTE | 2020-07-30 17:40 | NUR ---
ROUNDS MADE. PT LYING AWAKE IN BED TALKING ON THE PHONE. PAIN AND NEEDS ASSESSED. PT REPORTS PAIN 7/10 AND REQUEST PAIN MEDICATION AT THIS TIME. NORCO 10MG 1 TAB GIVEN. PT REQUEST MILK TO DRINK AND QUESTIONS IF HER SIG OTHER CAN GET HER SOMETHING TO EAT FROM THE VENDING MACHINES. PT TOLD YES, SHE MAY EAT ANYTHING SHE LIKES. SALINE LOCK D/C'D INTACT PER PT'S REQUEST. BANDAID PLACED OVER SITE. REDNESS, BUT NO SWELL NOTED AT SITE.
--- NOTE | 2020-07-30 18:42 | NUR ---
pt ambulating in halls pushing baby in crib.
--- NOTE | 2020-07-30 19:10 | NUR ---
BEDSIDE SHIFT REPORT COMPLETED AT THIS TIME TO ASSUME PT CARE. PATIENT STATES THAT SHE IS GOING TO TRY AND GET SOME SLEEP AND WOULD LIKE ME TO COME BACK FOR HER ASSESSMENT LATER. INFORMED PT THAT WAS FINE, TO PLEASE CALL WHEN SHE WOKE UP.
--- NOTE | 2020-07-30 20:15 | NUR ---
PATIENT RESTING QUIETLY IN BED, AT BEDSIDE IN OPEN CRIB. NO NEEDS IDENTIFIED.
--- NOTE | 2020-07-30 22:44 | NUR ---
MEDICATION ADMINISTERED PER PT REQUEST, SEE EMAR.
[2020-07-30 22:45] VITALS: BP 132/59
--- NOTE | 2020-07-30 22:45 | NUR ---
PATIENT RESTING QUIETLY IN BED, SHIFT ASSESSMENT COMPLETED AT THIS TIME, SEE FLOWSHEET. SIGNIFICANT OTHER REMAINS AT BEDSIDE FOR SUPPORT.
--- NOTE | 2020-07-31 00:55 | NUR ---
PT RESTING QUIETLY WITH EYES OPEN. NO NEEDS IDENTIFIED AT THIS TIME. WILL CONTINUE TO MONITOR.
--- NOTE | 2020-07-31 02:08 | NUR ---
PATIENT SITTING UP IN BED FEEDING INFANT AT THIS TIME. NO NEEDS IDENTIFIED. BED REMAINS LOCKED IN LOW POSITION, SIDE RAILS UPX2, CALL MUÑOZ AND TRAY TABLE IN REACH. SIGNIFICANT OTHER REMAINS AT BEDSIDE FOR SUPPORT.
--- NOTE | 2020-07-31 05:22 | NUR ---
PATIENT SLEEPING WITH EVEN RESPIRATIONS, EASILY AROUSED TO VERBAL STIMULI. PT DENIES NEEDS AT THIS TIME. WILL CONTINUE TO MONITOR.
[2020-07-31 07:41] VITALS: BP 133/76
--- NOTE | 2020-07-31 07:41 | NUR ---
SHIFT ASSESSMENT COMPLETED PER FLOWSHEET. VSS. FUNDUS FIRM, MIDLINE AND U2 WITH SCANT RUBRA LOCHIA, NO CLOTS NOTED. C/O ABD AND INCISIONAL DISCOMFORT, MEDICATED PER EMAR. REPORTS THAT SHE IS VOIDING AND PASSING FLATUS WITHOUT DIFFICULTY. LOWER TRANSVERSE ABD INCISION WELL APPROXIMATED WITH PRAVEEN INTACT, NO DRAINAGE NOTED. EDUCATED ON INCISIONAL CARE, VERBALIZES UNDERSTANDING. SPOUSE IN ROOM CARING FOR INFANT. POC DISCUSSED, VERBALIZES UNDERSTANDING AND DENIES QUESTIONS. ICE WATER PROVIDED. REFUSES SCDS, EDUCATION PROVIDED. BED IN LOW POSITION WITH SRUP X2. CALL LIGHT AND PHONE WITHIN REACH. SPOUSE SUPPORTIVE AND ATTENTIVE.
--- NOTE | 2020-07-31 08:30 | NUR ---
RATES PAIN AT 4/10 BUT IS ABLE TO REST EASIER AT THIS TIME. DENIES NEEDS, CALL LIGHT IN REACH.
--- NOTE | 2020-07-31 09:13 | NUR ---
PT AND SIG OTHER AMB IN HALLS WITH IN CRIB.
[2020-07-31 09:19] VITALS: BP 129/78
--- NOTE | 2020-07-31 09:19 | NUR ---
SITTING EDGE OF BED CARING FOR INFANT. DENIES PAIN AT THIS TIME. B/P RECHECK DONE. DENIES NEEDS.
--- NOTE | 2020-07-31 10:31 | NUR ---
AMBULATORY IN [place]. STEADY GAIT NOTED. DENIES NEEDS AND PAIN AT THIS TIME.
--- NOTE | 2020-07-31 11:48 | NUR ---
COFFEE AND PADS PROVIDED. DENIES ADDITIONAL NEEDS. RESTING IN OPEN CRIB AT BEDSIDE. DENIES ADDITIONAL NEEDS. BED IN LOW POSITION WITH SRUP X2. CALL LIGHT AND PHONE WITHIN REACH.
--- NOTE | 2020-07-31 12:34 | NUR ---
EATING LUNCH TRAY PROVIDED. DENIES NEEDS AT THIS TIME. SITTING UP IN CHAIR. INFANT RESTING IN OPEN CRIB AT BEDSIDE. SIG OTHER AT BEDSIDE, SUPPORTIVE AND ATTENTIVE TO PT AND INFANT NEEDS.
--- NOTE | 2020-07-31 13:23 | NUR ---
PREPARING TO FEED INFANT. C/O ABD AND INCISIONAL DISCOMFORT. MEDICATED PER EMAR. DENIES ADDITIONAL NEEDS. BED IN LOW POSITION WITH SRUP X2. CALL LIGHT AND PHONE WITHIN REACH. SIG OTHER AT BEDSIDE, SUPPORT AND ATTENTIVE TO PT AND NEEDS.
[2020-07-31] MEDS ORDERED: HYDROCODON-ACE1 EA10 PO (14:13)
[2020-07-31] MEDS ORDERED: MOTRIN600 MG PO (14:13)
--- NOTE | 2020-07-31 14:16 | NUR ---
DENIES PAIN. VERBAL AND WRITTEN D/C INSTRUCTIONS PROVIDED TO PT AND SIG OTHER. BOTH VERBALIZE UNDERSTANDING. COPY OF [facility] PP CARE INSTRUCTION HANDOUT, [employer]ITY [employer] HANDOUT, SAVE YOUR LIFE HANDOUT, AND POST OP CARE INSTURCTION HAND OUT PROVIDED. NBN TO BEDSIDE FOR D/C
--- NOTE | 2020-07-31 15:24 | NUR ---
OFF UNIT WITH THIS RN AND IN CARSEAT IN STABLE CONDITION VIA W/C.
== END 2020-07-31 15:24 | disposition home or self-care (01) | DRG 785 ==
LOC: D.LD 07-29 09:33 → D.SDCHOLD 07-29 12:00 → D.LD 07-31 15:24
PROVIDERS: ADMIT Obstetrics & Gynecology; ATTEND Obstetrics & Gynecology
PROC: 10D00Z1 Extraction of Products of Conception, Low, Open Approach (ICD-10-PCS; principal; 2020-07-29 12:00)
PROC: 0UB70ZZ Excision of Bilateral Fallopian Tubes, Open Approach (ICD-10-PCS; 2020-07-29 12:00)
DX: O34.211 Maternal care for low transverse scar from previous cesarean delivery (principal); Z3A.38 38 weeks gestation of pregnancy; Z37.0 Single live birth; Z30.2 Encounter for sterilization; Z30.09 Encounter for other general counseling and advice on contraception

== ENCOUNTER 2020-07-16 14:00 | Outpatient (CLI) | payer MEDICAID ==
[2020-02-19 19:41] VITALS: BMI 24.8
== END 2020-07-16 14:49 | disposition home or self-care (01) ==
LOC: D.LDO 14:00
PROVIDERS: ATTEND Obstetrics & Gynecology
DX: O35.9XX0 Maternal care for (suspected) fetal abnormality and damage, unspecified, not applicable or unspecified (principal); O24.419 Gestational diabetes mellitus in pregnancy, unspecified control

== ENCOUNTER 2020-07-21 15:45 | Outpatient (CLI) | payer MEDICAID ==
[2020-02-19 19:41] VITALS: BMI 24.8
== END 2020-07-21 16:52 | disposition home or self-care (01) ==
LOC: D.LDO 15:45
PROVIDERS: ATTEND Obstetrics & Gynecology
DX: O24.419 Gestational diabetes mellitus in pregnancy, unspecified control (principal)

== ENCOUNTER → 2020-08-06 09:04 | Outpatient (CLI) | payer MEDICAID ==
[2020-07-30 08:54] VITALS: BMI 28.1
[~2020-08-06 09:04] MED LIST changes: +HYDROCODON-ACE1 EA10 PO; +MOTRIN600 MG PO
== END | disposition home or self-care (01) ==
LOC: D.US 09:04
PROVIDERS: ATTEND Obstetrics & Gynecology
DX: R22.42 Localized swelling, mass and lump, left lower limb (principal)

== ENCOUNTER → 2020-09-03 07:34 | Outpatient (CLI) | payer MEDICAID ==
[2020-07-30 08:54] VITALS: BMI 28.1
--- NOTE | 2020-09-03 08:48 | NUR ---
ALLSTOP TIME OUT USING PATIENT NAME AND DATE OF BY DR. COX/NO ALLERGIES TO IODIONE/@[id number] 15ML OF ISOVUE 300 USED TO DO HYSTEROSALPINGIOGRAM.
== END | disposition home or self-care (01) ==
LOC: D.RAD 07:34
PROVIDERS: ATTEND Obstetrics & Gynecology
DX: Z98.51 Tubal ligation status (principal)